=== PATIENT | male | born 1940 | race Caucasian/White ===

== ENCOUNTER → 2017-02-28 | Day surgery (SDC) | payer MEDICARE, OTHER ==
[~2017-02-28] MED LIST: ALLO300T2 PO; ASCO100037 PO; ASPI81TA11 PO; BAYE325T3 PO; BUPIVACAINE HCL PF 0.5% 30 ML VIAL ONE; BUPIVACAINE HCL PF 0.75% 30 ML VIAL ONE; CALC600T25 PO; CARV12.52 PO; CINN500C13 PO; FURO1TAB93 PO; FURO40TA PO; GABA300C5 PO; GLIP10TA6 PO; HYDR-3583 PO; IMDU30TA PO; ISOS20TA PO; METF1000 PO; METF500 PO; MIDAZOLAM HCL 2 MG/2 ML VIAL IV ONE; MONT10TA2 PO; POTA8CAP PO; PROPOFOL 200 MG/20 ML AMP IV ONE; SIMV40 PO; SITA50 PO; TRIAMCINOLONE ACETONIDE 40 MG/ML VIAL I-ARTICULR ONE; TURM500C3 PO; VITA1000 PO; ZOCO40TA PO; methylPREDNISolone ACETATE 40 MG/ML VIAL I-ARTICULR ONE
--- NOTE | 2017-03-03 08:12 | M6 ---
cc: JOAN BOONE M.D. DATE 02/28/2017 DATE OF 1940 PROCEDURE Fluoroscopically guided injection bilateral lumbar facet joints (bilateral L3-4, L4-5 and L5-S1 facet joints). PROCEDURE NOTE History and physical was completed and signed. Consent was signed. Procedure site was marked. Medications were listed and reconciled. Pain score was recorded. Allergies were noted. Time out was taken. Fluoroscopy time was recorded where applicable. Sedation was administered or directed by Dr. Boone. The patient was given oxygen. The patient was monitored by a registered nurse. Total procedure time was greater than 15 minutes. IV was started, blood pressure cuff, pulse oximeter and EKG were applied. The patient was placed in the prone position on a table, sedated with small amounts of propofol titrated to effect. Vital signs were monitored and remained stable throughout the procedure. The lumbar area was prepped with alcohol and 10% Betadine solution, draped with sterile drapes. Fluoroscopy was used in a Sonido dog view to clearly visualize the bilateral lumbar facet joints at L3-4, L4-5 and L5-S1. Separate sterile 5-inch, 22-gauge spinal needles were advanced into these joints under fluoroscopic guidance. There was negative aspiration for blood or any other type of fluid and at each location, the patient was given 1 mL of Marcaine 0.75% which contained 10 mg of Kenalog. Following the procedure, the patient was taken to the recovery room with stable vital signs neurologically intact. He will be evaluated immediately and with followup to determine if he has a subjective decrease in his usual pain and a corresponding objective increase in his functional capabilities. W. MD LEEANN Singletary/HEBER /9:29 AM /8:14 AM
== END | disposition home or self-care (01) ==
LOC: PHSDC 07:47
PROVIDERS: ATTEND Pain Medicine Interventional Pain Medicine
DX: M54.5 Low back pain (principal); I10 Essential (primary) hypertension; E11.9 Type 2 diabetes mellitus without complications; I25.2 Old myocardial infarction; Z95.1 Presence of aortocoronary bypass graft; Z95.0 Presence of cardiac pacemaker
CPT/HCPCS: 64493; 64494; 64495; 99152; J1030; J2250; J3301

== ENCOUNTER → 2017-03-16 | Day surgery (SDC) | payer MEDICARE, OTHER ==
[~2017-03-16] MED LIST changes: -BAYE325T3 PO; -BUPIVACAINE HCL PF 0.5% 30 ML VIAL ONE; -BUPIVACAINE HCL PF 0.75% 30 ML VIAL ONE; -FURO1TAB93 PO; -IMDU30TA PO; +LIDOCAINE HCL 1% PF 30 ML VIAL INFIL ONE; +MEPERIDINE HCL 25 MG/ML VIAL IV ONE; -METF500 PO; -MONT10TA2 PO; -SIMV40 PO; +SODIUM CHLORIDE 0.9% 10 ML VIAL ONE; -TRIAMCINOLONE ACETONIDE 40 MG/ML VIAL I-ARTICULR ONE; -methylPREDNISolone ACETATE 40 MG/ML VIAL I-ARTICULR ONE; +methylPREDNISolone ACETATE 80 MG/ML VIAL ONE
--- NOTE | 2017-03-18 22:39 | M6 ---
cc: Bibiana BOONE DATE 03/16/2017 1940 PROCEDURE Caudal epidural steroid injection. History and physical was completed and signed. Consent was signed. Procedure site was marked. Medications were listed and reconciled. Pain score was recorded. Allergies were noted. Time out was taken. Fluoroscopy time was recorded where applicable. Sedation was administered or directed by Dr. Boone. The patient was given oxygen. The patient was monitored by a registered nurse. Total procedure time was greater than 15 minutes. PROCEDURE An IV was started, blood pressure cuff, pulse oximeter and EKG were applied. The patient was placed in the prone position, sedated with small amounts of Versed and propofol titrated to effect. Vital signs were monitored and remained stable throughout the procedure. The sacral and coccygeal area were scrubbed with antimicrobial solution and prepped with 10% Betadine solution. The sacral hiatus was palpated. A 2-inch 20 gauge spinal needle was inserted easily on the first attempt. There was negative aspiration for blood or CSF. There was no apparent paresthesia. The patient was slowly given 20 mL of 0.5% xylocaine 80 mg of Depo-Medrol. The patient was taken to the recovery area with stable vital signs, neurologically intact. MD LEEANN Wallace/ /8:24 AM /10:39 PM
== END | disposition home or self-care (01) ==
LOC: PHSDC 06:43
PROVIDERS: ATTEND Pain Medicine Interventional Pain Medicine
DX: M54.5 Low back pain (principal); M79.661 Pain in right lower leg
CPT/HCPCS: 62323; 99152; J1040; J2175; J2250

== ENCOUNTER → 2017-04-25 | Day surgery (SDC) | payer MEDICARE, OTHER ==
--- NOTE | 2017-04-27 08:05 | M6 ---
cc: Bibiana BOONE DATE 04/25/2017 DATE OF 1940 PROCEDURE Caudal epidural steroid injection. PROCEDURE NOTE History and physical was completed and signed. Consent was signed. Procedure site was marked. Medications were listed and reconciled. Pain score was recorded. Allergies were noted. Time out was taken. Fluoroscopy time was recorded where applicable. Sedation was administered or directed by Dr. Boone. The patient was given oxygen. The patient was monitored by a registered nurse. Total procedure time was greater than 15 minutes. An IV was started, blood pressure cuff, pulse oximeter and EKG were applied. The patient was placed in the prone position, sedated with small amounts of Versed and propofol titrated to effect. Vital signs were monitored and remained stable throughout the procedure. The sacral and coccygeal area were scrubbed with antimicrobial solution and prepped with 10% Betadine solution. The sacral hiatus was palpated. A 2-inch 20 gauge spinal needle was inserted easily on the first attempt. There was negative aspiration for blood or CSF. There was no apparent paresthesia. The patient was slowly given 12 mL 0.5% Xylocaine which contained 80 mg of Depo-Medrol. The patient was taken to the recovery area with stable vital signs, neurologically intact. MD LEEANN Wallace/HEBER /9:20 AM /7:55 AM
== END | disposition home or self-care (01) ==
LOC: PHSDC 07:19
PROVIDERS: ATTEND Pain Medicine Interventional Pain Medicine
DX: M51.35 Other intervertebral disc degeneration, thoracolumbar region (principal); M47.815 Spondylosis without myelopathy or radiculopathy, thoracolumbar region
CPT/HCPCS: 62323; 99152; J1040; J2175; J2250

== ENCOUNTER → 2017-10-23 | Outpatient (CLI) | payer MEDICARE, OTHER ==
[~2017-10-23] MED LIST changes: -ASPI81TA11 PO; +ASPI81TA23 PO; -CALC600T25 PO; +CALC600T5 PO; -CINN500C13 PO; +CINN500C14 PO; -LIDOCAINE HCL 1% PF 30 ML VIAL INFIL ONE; -MEPERIDINE HCL 25 MG/ML VIAL IV ONE; -MIDAZOLAM HCL 2 MG/2 ML VIAL IV ONE; +PILO5TAB3 PO; -PROPOFOL 200 MG/20 ML AMP IV ONE; +REDCAP2 PO; -SODIUM CHLORIDE 0.9% 10 ML VIAL ONE; +TYLE325T PO; +VITA250T3 PO; -methylPREDNISolone ACETATE 80 MG/ML VIAL ONE
== END ==
LOC: PHPRE 13:19
PROVIDERS: ATTEND Pain Medicine Interventional Pain Medicine
DX: Z00.8 Encounter for other general examination (principal)

== ENCOUNTER → 2017-10-30 | Day surgery (SDC) | payer MEDICARE, OTHER ==
[~2017-10-30] VITALS: Ht 175.3 cm; Wt 121.0 kg
[~2017-10-30] MED LIST changes: +BUPIVACAINE HCL PF 0.25% 30 ML VIAL ONE; +BUPIVACAINE/EPINEPHRINE 0.25% 50 ML VIAL ONE; +BUPIVACAINE/EPINEPHRINE 0.5% PF 30 ML VIAL ONE; +CHLORHEXIDINE GLUCONATE 2 % 1 PACK (2 CLOTHS) TOPICAL PRN; +FAMOTIDINE 20 MG/2 ML VIAL ONE; +LACTATED RINGER'S 1000 ML IV PRN; +LIDOCAINE 1%/EPINEPHrine 1:100,000 SOLN 30 ML VIAL ONE; +LIDOCAINE HCL 1% 20 ML VIAL ONE; +METOPROLOL TARTRATE 25 MG TAB PO PRN; +NEOMYCIN/POLYMYXIN 1 ML G.U. IRRIGANT ONE; +PHENYLEPH/NS 1000 MCG/10 ML SYR IV ONE; +POVIDONE IODINE 5% (ANTISEPSIS KIT) 4 APPLICATIONS EACH NARE PRN; +PROPOFOL 200 MG/20 ML AMP IV ONE; +PROPOFOL 500 MG/50 ML INJ 50 ML ONE; +SODIUM CHLORID 0.9% 500 ML IV PRN; +SODIUM CHLORIDE 0.9% 20 ML VIAL ONE; -ZOCO40TA PO; +ceFAZolin 1,000 MG/NS 100 ML IV SCH
[2017-10-30 16:00] VITALS: BP 121/73; PULSE 62; RESP 18; TEMP 97.7; O2SAT 97
--- NOTE | 2017-10-31 12:58 | MP ---
cc: JOAN GRIJALVA M.D. DATE OF SURGERY 10/30/2017 PROCEDURE Implantation of Medtronic spinal cord stimulating octrodes x 2. PREPROCEDURE DIAGNOSIS Intractable lumbago and bilateral lower extremity pain. POSTPROCEDURE DIAGNOSIS Intractable lumbago and bilateral lower extremity pain. PROCEDURE NOTE IV was started in the holding area. The patient was given IV antibiotics. Consent forms were signed. The surgical site was marked. The patient was taken to the operating room, placed in a prone position. All pressure points were checked and padded. The patient was sedated and monitored by Anesthesia. His back was prepped with ChloraPrep. Then fluoroscopy was used to visualize the T12-L1 interlaminar space. The skin was infiltrated with 1% Xylocaine using a 27-gauge needle. Then a modified Tuohy needle from the Medtronic's kit was advanced into the epidural space both on the right and the left of the midline. There was negative flow of cerebrospinal fluid or blood through the needles. Then a Medtronic's octrode was threaded parallel with each other; one was on the left and one was on the right of the midline until the cephalad tip of the lead was at the cephalad border of T9 and the caudal electrodes were near the caudal portion of T10. The patient then was awakened and stimulation took place at multiple electrode combinations and during this time the patient fell excellent stimulation in his low back, buttocks and lower extremities. This was covering all the areas of his pain. Then the patient was re-sedated and each lead was anchored to the underlying ligamentous tissue using 200 Ethibond sutures circumferentially tied around Silastic anchoring devices. Fluoroscopy was used confirm the leads did not move in the anchoring process. Then hemostasis was obtained. The distal extension wires were connected to the stimulating leads by tightening an Cristobal screw and covering the connection with a Silastic cover secured at both ends with 2-0 Ethibond suture. Impedance was checked at the bedside found to be appropriate in all of the electrodes. Then a tunneling device was passed to exit on the patient's left flank. The redundant stimulating leads and distal extension wires were coiled in the lumbar incision and then the distal extension wires were passed through the tunneling device to exit on the patient's left flank. Then the lumbar incision was closed using 3-0 Monocryl in the subcuticular tissue and 3-0 nylon on the skin. The incisions were covered with sterile adhesive dressings and the patient was taken to the recovery room with stable vital signs, neurologically intact. W. MD LEEANN Singletary/AMANDA /3:25 PM /12:43 PM
--- NOTE | 2017-11-01 08:32 | RADRPT ---
EXAM DATE/TIME: 10/30/2017 14:46 [facility] COMPARISON: FLUOROSCOPY FOR INTERVENTIONAL PAIN, SPINAL UP TO 1 HR, November 13, 2015, 0:00. INDICATIONS : Neurostimulator implant placement. MEDICAL HISTORY : Diabetes mellitus type II. Myocardial infarction. Hypercholesterolemia. Ankle fracture. Hypertens ion. Sleep apnea. GERD. Chronic kidney disease. SURGICAL HISTORY : Tonsillectomy. Pacemaker. CABG. Right ankle ORIF. Eye implants. ENCOUNTER: Initial ACUITY: 1 day PAIN SCORE: 5/10 LOCATION: thoracic spine FINDINGS: Single view of the thoracic spine is identified. There are spinal stimulator electrodes in place. The tip of the electrodes are labeled at the superior endplate of T9. CONCLUSION: 1. Spinal stimulators in place. The tip of the electrodes are labeled to be at the level of T9. Sign report Donnell Henry MD on November 01, 2017 at 8:30 Board Certified Radiologist. This report was verified electronically.
== END | disposition home or self-care (01) ==
LOC: PHSDC 10:41
PROVIDERS: ATTEND Pain Medicine Interventional Pain Medicine
DX: M96.1 Postlaminectomy syndrome, not elsewhere classified (principal); M54.5 Low back pain; M79.605 Pain in left leg; M79.604 Pain in right leg; I10 Essential (primary) hypertension; E11.9 Type 2 diabetes mellitus without complications; Z79.84 Long term (current) use of oral hypoglycemic drugs; Z79.82 Long term (current) use of aspirin
CPT/HCPCS: 01936; 63650; 72020; C1778; J0690; J2370; J7120

== ENCOUNTER → 2017-11-06 | Day surgery (SDC) | payer MEDICARE, OTHER ==
[~2017-11-06] VITALS: Ht 175.3 cm; Wt 121.0 kg
[~2017-11-06] MED LIST changes: -ASCO100037 PO; -BUPIVACAINE HCL PF 0.25% 30 ML VIAL ONE; -BUPIVACAINE/EPINEPHRINE 0.5% PF 30 ML VIAL ONE; -FAMOTIDINE 20 MG/2 ML VIAL ONE; -LIDOCAINE 1%/EPINEPHrine 1:100,000 SOLN 30 ML VIAL ONE; -LIDOCAINE HCL 1% 20 ML VIAL ONE; -NEOMYCIN/POLYMYXIN 1 ML G.U. IRRIGANT ONE; -PHENYLEPH/NS 1000 MCG/10 ML SYR IV ONE; -PROPOFOL 500 MG/50 ML INJ 50 ML ONE; -REDCAP2 PO; -SODIUM CHLORIDE 0.9% 20 ML VIAL ONE; +SODIUM CHLORIDE 0.9% INJ 100 ML ONE; -ceFAZolin 1,000 MG/NS 100 ML IV SCH; +ceFAZolin INJ 1,000 MG VIAL ONE
[2017-11-06 13:40] VITALS: TEMP 97.9
[2017-11-06 14:10] VITALS: BP 123/72; PULSE 86; RESP 16; O2SAT 95
--- NOTE | 2017-11-06 15:43 | MP ---
cc: Bibiana Boone MD DATE OF OPERATION: 11/06/2017 PROCEDURE: Removal of Medtronic spinal cord stimulating electrode (Octrodes x 2). PREPROCEDURE DIAGNOSIS: Intractable lumbago. POSTPROCEDURE DIAGNOSIS: Intractable lumbago. PROCEDURE NOTE: IV was started in the holding area. The patient signed the consent forms. The patient was given IV antibiotics. The surgical site was marked. The patient was taken to the operating room, placed in the prone position. All pressure points were checked and padded, and he was sedated by anesthesia. The distal extension wire in the patient's left flank was prepped with alcohol and cut with sterile scissors. The 2 lumbar incisions were infiltrated with 0.25% Marcaine-containing epinephrine. The incisions were cut. The incision then were opened. The anchoring devices, which were holding the stimulating electrodes in place were cut using a scalpel to cut two 2-0 Ethibond sutures on each anchor. Then, the stimulating leads were removed intact. The incisions were irrigated with Betadine and then closed with 3-0 Monocryl in the subcuticular tissue and 3-0 nylon on the skin. The incisions were covered with sterile adhesive dressings, and the patient was taken to the operating room with stable vitals signs. MD LEEANN Wallace/PONCHO , 01:41 PM , 03:02 PM
== END | disposition home or self-care (01) ==
LOC: PHSDC 10:53
PROVIDERS: ATTEND Pain Medicine Interventional Pain Medicine
DX: M96.1 Postlaminectomy syndrome, not elsewhere classified (principal); M54.5 Low back pain
CPT/HCPCS: 01936; 63661; J0690; J7120